=== PATIENT | female | born 1950 | race Caucasian/White ===

== ENCOUNTER → 2017-01-25 | Outpatient (CLI) | payer OTHER | LOC: RAD 04:19 | DX: Z12.31 Encounter for screening mammogram for malignant neoplasm of breast (principal) ==

== ENCOUNTER → 2018-01-26 | Outpatient (CLI) | payer OTHER | LOC: RAD 04:57 | DX: Z12.31 Encounter for screening mammogram for malignant neoplasm of breast (principal) ==

== ENCOUNTER → 2019-02-05 | Outpatient (CLI) | payer OTHER | LOC: RAD 01:21 | DX: Z12.31 Encounter for screening mammogram for malignant neoplasm of breast (principal); Z88.0 Allergy status to penicillin; Z91.018 Allergy to other foods ==

== ENCOUNTER → 2020-02-06 | Outpatient (CLI) | payer OTHER | LOC: BC 12:23 | PROVIDERS: ATTEND Internal Medicine | DX: Z12.31 Encounter for screening mammogram for malignant neoplasm of breast (principal) ==

== ENCOUNTER → 2020-04-06 | Outpatient (CLI) | payer OTHER ==
[~2020-04-06] VITALS: Ht 162.6 cm; Wt 67.1 kg
== END | disposition home or self-care (01) ==
LOC: GI 13:36
PROVIDERS: ATTEND Specialist
DX: Z01.812 Encounter for preprocedural laboratory examination (principal); Z20.828 Contact with and (suspected) exposure to other viral communicable diseases; Z86.010 Personal history of colon polyps; Z98.890 Other specified postprocedural states; Z79.899 Other long term (current) drug therapy; Z85.41 Personal history of malignant neoplasm of cervix uteri

== ENCOUNTER → 2020-04-09 | Outpatient (CLI) | payer OTHER ==
--- NOTE | ~2020-04-09 | P ---
[facility] [place] [address] PROCEDURE REPORT Name: JOSÉ DESAI Room #: REG [facility] [place]#: [id number] Admission: 04/09/20 Attend Phys: Claude Brown MD Discharge: Date of : 50 Report #: [id number] THIS REPORT FOR: cc: Vic Jennings MD, Stanley P. MD Thesing, John A. MD ~ CC: Claude Jennings MD DATE OF SERVICE: 04/09/2020 OUTPATIENT COLONOSCOPY REPORT BRIEF HISTORY: The patient is a 69-year-old woman with a previous history of 3 adenomas. She presents for high risk screening colonoscopy. PREOPERATIVE DIAGNOSIS: High risk screening colonoscopy. POSTOPERATIVE DIAGNOSES: 1. Diminutive polyps, proximal transverse colon x 2. 2. Moderate sigmoid diverticulosis coli. 3. Small internal hemorrhoids. MEDICATIONS: Deep sedation with propofol per Anesthesia. SPECIMEN: Diminutive polyps x 2, proximal transverse colon. ESTIMATED BLOOD LOSS: 3 mL. PROCEDURE: Colonoscopy to cecum and terminal ileum with biopsy. FINDINGS: Prior to propofol sedation, procedure of colonoscopy discussed with the patient as well as potential risks and its complications. She indicates she understands and desires to proceed. DESCRIPTION OF PROCEDURE: With the patient in left lateral decubitus position, digital examination was completed, which revealed no abnormalities. Subsequently, the Olympus video colonoscope was introduced in the rectum, advanced under direct vision. We had some difficulty traversing the sigmoid colon, as she has significant diverticular disease and a very tortuous colon, likely related to previous pelvic surgery. However, we were able to reach the cecum, which was identified by the ileocecal valve and the appendiceal orifice. I was able to advance the tip of the scope to the mouth of the ileocecal valve and see a villous pattern, but we could not intubate because of the looping of [facility] [address] [place] [address] PROCEDURE REPORT Name: JOSÉ DESAI [id number] Admission: 04/09/20 Attend Phys: Claude Brown MD Discharge: Date of : 50 Report #: [id number] the scope. At that point, the scope was slowly withdrawn and careful circumferential views were obtained. Upon slow withdrawal of the scope, the prep was good. The mucosa was within normal limits, normal vascular pattern, normal light reflex. As we withdrew the scope, no abnormalities were noted until the proximal transverse colon was reached, at which point 2 diminutive polyps were seen and removed with biopsy forceps. Scope was further withdrawn, and no additional abnormalities were seen until the sigmoid colon was reached and she was noted to have moderate diverticular disease without endoscopic evidence of diverticulitis. Scope was withdrawn into the rectum, no abnormalities were seen. However, upon retroflexion, a few small internal hemorrhoids were seen. No other abnormalities were seen. Scope was withdrawn. The patient tolerated the procedure well. CONDITION OF THE PATIENT UPON DISCHARGE: Following procedure, the patient drowsy, arousable and conversant and will be discharged home when fully ambulatory. INSTRUCTIONS TO THE PATIENT AND FAMILY AT THE TIME OF DISCHARGE: Two diminutive polyps identified and removed as described above. We will follow up on the pathology and make further recommendations. If one or both the polyps are adenomas, she should return in 5 years; if neither is adenomatous, then 10 years would be indicated. Also, suggest high-fiber diet for diverticular disease. Last colonoscopy was 5 years ago. Withdrawal time from cecum was 12 minutes 40 seconds. By: 0844 Claude Brown MD /nt
--- NOTE | 2020-04-10 18:06 | PATH ---
[facility] [address] [place] [address] PATHOLOGY RPT PROCEDURE Name: DEYSI DESAI Room #: REG [facility] [place].#: [id number] Admission: 04/09/20 Date of : 50 Discharge: Report #: [id number] Path Case #: [id number] [facility] Accession Number: [id number] . 01 Material submitted: . colon - POLYP AT PROXIMAL TRANSVERSE COLON X2. Modifiers: proximal, transverse . 01 Clinical history: . HX OF POLYPS . 02 Diagnosis: Polyp x2, at proximal transverse colon, endoscopic biopsy: - Tubular adenoma x2. - Negative for high-grade dysplasia. (IUV:valeriy; 04/10/2020) QMS 04/10/2020 1233 Local . 02 Electronically signed: . Nida Thomas MD, Pathologist NPI- [id number] . 01 Gross description: . Received in formalin labeled "Deysi Desai, polyp at proximal transverse colon x2" is a 0.6 x 0.5 x 0.1 cm aggregate of zamudio-brown soft tissue fragments. The specimen is submitted entirely in A1. ([facility]; 04/09/2020) [facility] 04/09/20202 Local . 02 Pathologist provided ICD-10: D12.3 . 02 CPT . 464584 Specimen Comment: A courtesy copy of this report has been sent to [phone] Specimen Comment: [phone], Specimen Comment: Report sent to ,DR GREER / DR SCHULZ Performed at: [address], [place] [id number] MD Joe Funes MD Phone: [phone] Performed at: [address] [id number] MD Nida Thomas MD Phone: [phone]
== END | disposition home or self-care (01) ==
LOC: GI 06:31
PROVIDERS: ATTEND Specialist
DX: Z12.11 Encounter for screening for malignant neoplasm of colon (principal); Z86.010 Personal history of colon polyps; D12.3 Benign neoplasm of transverse colon; K57.30 Diverticulosis of large intestine without perforation or abscess without bleeding; K64.8 Other hemorrhoids; Z98.890 Other specified postprocedural states; Z88.0 Allergy status to penicillin; Z91.040 Latex allergy status
CPT/HCPCS: 62110; 62900

== ENCOUNTER → 2021-02-17 | Outpatient (CLI) | payer OTHER | LOC: RAD 13:42 | PROVIDERS: ATTEND Internal Medicine | DX: Z12.31 Encounter for screening mammogram for malignant neoplasm of breast (principal) ==